=== PATIENT | male | born 1985 | race Two or more races ===

== ENCOUNTER 2019-10-04 03:12 | Emergency (ER) | payer SELFPAY ==
[~2019-10-04] VITALS: Ht 175.3 cm; Wt 108.9 kg
[2019-10-04 03:12] VITALS: BP 143/80
--- NOTE | 2019-10-04 03:12 | NUR ---
TO BED #07 BROUGHT IN BY AMBULANCE FOUND ON SIDE WALK ETOH, PATIENT ETOH, BS 86 MG/DL.
[2019-10-04] MEDS ORDERED: MULTIVITAMIN-12 10 ML, THIAMINE 100 MG, FOLIC ACID 1 MG, MAGNESIUM SULFATE 50% 2,000 MG... IV SCH ×5 (03:15)
--- NOTE | 2019-10-04 03:32 | NUR ---
PT AJ, PT FOUND DOWN IN [facility]. PT ADMITS TO DRINK 6 TALL CANS OF BEER. PT STATES HE IS VERY TIRED. PT APPEARS TO BE IN NO DISTRESS. PT DENIES N/V. PT KNOWS HE IS AT THE HOSPITAL.
[2019-10-04] MEDS ORDERED: MULTIVITAMIN-12 10 ML VIAL IV ONE (03:45)
[2019-10-04] MEDS ORDERED: MAG SULF 2000 MG/WATER PREMIX 0 ML IV ONE (03:47)
[2019-10-04] MEDS ORDERED: THIAMINE 200 MG/2 ML VIAL ONE (03:48)
--- NOTE | 2019-10-04 03:50 | NUR ---
DR BARCLAY AT BEDSIDE.
[2019-10-04] MEDS ORDERED: FOLIC ACID 5 MG/ML SYR ONE (03:53)
--- NOTE | 2019-10-04 03:56 | NUR ---
PT AMBULATED TO RESTROOM WITHOUT ASSISTANCE.
--- NOTE | 2019-10-04 04:00 | NUR ---
PATIENT ELOPED FROM FACILITY. DISCHARGE INSTRUCTIONS NOT GIVEN TO PATIENT. NOTIFIED.IV AND ID BAND REMOVED PRIOR TO ELOPOEMENT. AAO X4. VSS. RESPIRATIONS ARE EVEN AND UNLABORED. SKIN IS WARM AND DRY TO TOUCH. PT ABLE TO AMBULATE WITH STEADY GAIT UNASSISTED.
[2019-10-04 04:22] VITALS: BP 145/98
== END 2019-10-04 04:00 | disposition left against medical advice (07) ==
LOC: MED 03:12
DX: F10.129 Alcohol abuse with intoxication, unspecified (principal); I10 Essential (primary) hypertension
CPT/HCPCS: 99283; A9153; J3411; J3475; J3490